=== PATIENT | male | born 2000 | race Caucasian/White ===

== ENCOUNTER 2018-02-07 10:25 | Emergency (ER) | payer BC, OTHER ==
[~2018-02-07] VITALS: Ht 172.7 cm; Wt 62.6 kg
--- NOTE | 2018-02-07 10:50 | NUR ---
Dr León is at bedside doing the MSE.
[2018-02-07] MEDS ORDERED: FLUCONAZOLE 100 MG TABLET ONE (10:56)
--- NOTE | 2018-02-07 10:58 | NUR ---
Patient discharged to home in stable conditon. Written and verbal after care instructions given to patient and mother. Patient and family verbalized understanding of instructions.
[2018-02-07] MEDS ORDERED: FLUCONAZOLE 100 MG TABLET PO ONE (11:00)
== END 2018-02-07 10:59 | disposition home or self-care (01) ==
LOC: ER 10:25
DX: B37.2 Candidiasis of skin and nail (principal)
CPT/HCPCS: A4663

== ENCOUNTER 2020-08-02 10:40 | Outpatient (CLI) | payer BC, OTHER ==
[2020-08-02 11:11] LABS: BASOPHILS # (AUTO) 0.1 K/uL (0.0-8.0); BASOPHILS % (AUTO) 0.8 % (0.0-2.0); EOSINOPHILS # (AUTO) 0.1 K/uL (0.0-0.7); EOSINOPHILS % (AUTO) 1.7 % (0.0-7.0); HEMATOCRIT 49.4 % (36.7-47.1); HEMOGLOBIN 16.7 g/dL (12.5-16.3); LYMPHOCYTES # (AUTO) 2.5 K/uL (20.0-40.0); LYMPHOCYTES % (AUTO) 37.8 % (20.5-51.5); MEAN CORPUSCULAR HEMOGLOBIN 29.2 uug (23.8-33.4); MEAN CORPUSCULAR HGB CONC 34 g/dL (32.5-36.3); MEAN CORPUSCULAR VOLUME 86.2 fL (73.0-96.2); MONOCYTES # (AUTO) 0.4 K/uL (2.0-10.0); MONOCYTES % (AUTO) 6.1 % (0.0-11.0); NEUTROPHILS # (AUTO) 3.6 K/uL (1.8-8.9); NEUTROPHILS % (AUTO) 53.6 % (38.5-71.5); PLATELET COUNT (AUTO) 200 K/uL (152-348); RED BLOOD CELL COUNT(AUTO) 5.73 MIL/uL (4.06-5.63); WHITE BLOOD COUNT (AUTO) 6.7 K/uL (3.6-10.2)
[2020-08-02 11:27] LABS: *BILIRUBIN,URIN NEGATIVE (NEGATIVE); *BLOOD, URINE NEGATIVE (NEGATIVE); *CLARITY,URINE CLEAR (CLEAR); *COLOR,URINE YELLOW (YELLOW); *KETONES,URINE NEGATIVE (NEGATIVE); *UROBILINOGEN,URINE 0.2 E.U./dl (NORMAL); LEUKOCYTE ESTERASE ,URINE NEGATIVE (NEGATIVE); NITRITE, URINE NEGATIVE (NEGATIVE); PH,URINE 6.5 (5.0-8.0); UGLUCOSE NEGATIVE (NEGATIVE)
[2020-08-02 11:34] LABS: THYROID STIMULATING HORMONE 0.961 mIU/mL (0.358-3.740)
[2020-08-02 11:53] LABS: BILIRUBIN,TOTAL 0.4 mg/dL (0.2-1.0); TOTAL PROTEIN, SERUM 7.9 g/dL (6.4-8.2)
== END 2020-08-02 23:59 | disposition home or self-care (01) ==
LOC: LAB 10:40
PROVIDERS: ATTEND Internal Medicine
DX: E11.9 Type 2 diabetes mellitus without complications (principal); E78.5 Hyperlipidemia, unspecified; K21.9 Gastro-esophageal reflux disease without esophagitis; N39.0 Urinary tract infection, site not specified; E03.9 Hypothyroidism, unspecified; D64.9 Anemia, unspecified; R53.1 Weakness; Z00.00 Encounter for general adult medical examination without abnormal findings
CPT/HCPCS: 70030-TC; 83550; 84402; 84403; 84443; 85025